=== PATIENT | male | born 1985 | race Caucasian/White ===

== ENCOUNTER 2025-03-29 16:11 | Emergency (ER) | payer OTHER ==
[~2025-03-29] VITALS: Ht 172.7 cm; Wt 90.0 kg
[2025-03-29 16:15] VITALS: O2SAT 94
[2025-03-29] MEDS: FAMOTIDINE 20MG/2ML VIAL IV ONE (16:42)
[2025-03-29] MEDS: KETOROLAC 15MG/ML VIAL IV ONE (16:42)
[2025-03-29 17:03] LABS: BASOPHILS % 0.6 % (0.0-2.0); EOSINOPHILS % 1.4 % (0.0-5.0); HEMATOCRIT. 43.8 % (42.0-52.0); HEMOGLOBIN. 14.8 g/dL (14.0-18.0); LYMPHOCYTES % 33.4 % (20.0-50.0); MEAN PLATELET VOLUME 9.1 fl (7.4-10.4); MONOCYTES % 5.1 % (2.0-8.0); NEUTROPHILS % 59.5 % (40.0-76.0); PLATELET 236 x1000/uL (130-400); RED BLOOD CELL COUNT 4.91 mill/uL (4.7-6.1); RED CELL DISTRIBUTION WIDTH 13.6 % (11.6-14.6)
[2025-03-29 17:23] LABS: CREATININE 1.1 mg/dL (0.6-1.3); UREA NITROGEN BLOOD 9 mg/dL (9-23)
[2025-03-29 17:24] LABS: PROTEIN TOTAL 6.4 g/dL (6.0-8.3); TROPONIN I HIGH SENSITIVITY 10 ng/L (3.0-53)
[2025-03-29 17:25] LABS: ASPARTATE AMINOTRANSFERASE 94 IU/L (<34); BILIRUBIN DIRECT 0.4 mg/dL (<=3.0); BILIRUBIN TOTAL 1.2 mg/dL (0.1-1.0)
[2025-03-29 20:04] VITALS: BP 115/64; PULSE 74; RESP 17; TEMP 36.9; O2SAT 97
[2025-03-29 20:22] LABS: TROPONIN I HIGH SENSITIVITY 10 ng/L (3.0-53)
[2025-03-29] MEDS ORDERED: IOHEXOL-350 100 ML BOTTLE ONE (22:44)
== END 2025-03-29 20:08 | disposition home or self-care (01) ==
LOC: ER 16:11
DX: R07.89 Other chest pain (principal); K21.9 Gastro-esophageal reflux disease without esophagitis; Z79.899 Other long term (current) drug therapy
CPT/HCPCS: 99285; 96374; 71275; 71045; 96375; 80076; 80048; 83880; 83735; 85025; 85379; 84484; 36415; 93005; J1885; Q9967; J1308